=== PATIENT | male | born 1975 | race Caucasian/White ===

== ENCOUNTER 2018-01-05 12:59 | Emergency (ER) | payer MEDICAID, OTHER ==
[2018-01-05 13:11] VITALS: BP 126/88
--- NOTE | 2018-01-05 14:14 | EDM.PDOC ---
ED HPI GENERAL MEDICAL PROBLEM - General Chief Complaint: Respiratory Problem Stated Complaint: DIFFICULTY BREATHING Time Seen by Provider: 01/05/18 14:04 Source of Information: Reports: Patient History Limitations: Reports: No Limitations - History of Present Illness INITIAL COMMENTS - FREE TEXT/NARRATIVE: Patient is a 42-year-old male who presents ED with concerns of inappropriate evaluation at the [facility] yesterday. Patient states he was diagnosed with bronchitis and placed on Augmentin and prednisone. Patient's been having cold- like symptoms including: Runny nose, postnasal drip, sinus congestion, mild headache, sore throat, and mild cough with minimal productive sputum that has been improving. He states he did not have a chest x-ray obtained. States while driving to [facility] his chest tightness to the left aspect of his chest with coughing increased the pain. Pain resolved quickly over the next few seconds. He's had no symptoms as such since. He has no history of blood clots to his lungs or legs. He has no pain or swelling to his lower legs. He has no history of spontaneous pneumothorax. There's been no recent long travel or surgery. He's never received hospitalized nor does he have cancer. He does smoke one half pack per day. There's been no recent sick exposures. Patient has a past medical history of hypertension and is on lisinopril. Surgical history noncontributory. - Related Data Allergies Allergy/AdvReac Type Severity Reaction Status Date / Time No Known Allergies Allergy Verified 10/04/14 08:54 Home Meds: Home Meds Amoxicillin/Clavulanate K [Augmentin 875-125 MG] 1 tab PO BID 01/05/18 [History] Prednisone [IJD: predniSONE] 40 mg PO DAILY 01/05/18 [History] Past Medical History Cardiovascular History: Reports: Hypertension Respiratory History: Reports: Pneumonia, Recurrent - Past Surgical History GI Surgical History: Reports: Appendectomy Social & Family History - Tobacco Use Smoking Status *Q: Current Every Day Smoker Years of Tobacco use: 15 Packs/Tins Daily: 0.5 - Caffeine Use Caffeine Use: Reports: Coffee - Recreational Drug Use Recreational Drug Use: No ED ROS GENERAL - Review of Systems Review Of Systems: ROS reveals no pertinent complaints other than HPI. ED EXAM, GENERAL - Physical Exam Exam: See Below Exam Limited By: No Limitations General Appearance: Alert, WD/WN, No Apparent Distress Ears: Hearing Grossly Normal Nose: Normal Inspection Throat/Mouth: Normal Inspection, Normal Oropharynx, Normal Voice, No Airway Compromise Head: Atraumatic, Normocephalic Neck: Normal Inspection, Supple Respiratory/Chest: No Respiratory Distress, Lungs Clear, Normal Breath Sounds, No Accessory Muscle Use, Chest Non-Tender Cardiovascular: Normal Peripheral Pulses, Regular Rate, Rhythm, No Murmur Peripheral Pulses: 4+: Radial (L), Radial (R) GI/Abdominal: Normal Bowel Sounds, Soft, Non-Tender, No Organomegaly Extremities: Normal Inspection, Non-Tender, No Pedal Edema, Normal Capillary Refill Neurological: Alert, Oriented, CN II-XII Intact, Normal Cognition, No Motor/ Sensory Deficits Psychiatric: Normal Affect, Normal Mood Skin Exam: Warm, Dry, Intact, Normal Color, No Rash Course - Vital Signs Last Recorded V/S: Last Vital Signs Temp 98.8 F 01/05/18 13:08 Pulse 7 L 01/05/18 13:08 Resp 20 01/05/18 13:08 BP 126/88 01/05/18 13:08 Pulse Ox 96 01/05/18 13:08 - Re-Assessments/Exams Free Text/Narrative Re-Assessment/Exam: Patient has viral upper respiratory infection. Diagnosis of bronchitis is correct. He is on Augmentin and prednison. Again I think this is viral and would resolve on its own accord. With that said patient has already taken 3 doses of the Augmentin and will continue. He'll also continue with the prednisone. Follow-up with his PCP at conclusion of therapy to ensure symptoms have improved. He as instructed to return to the ED if he develops any new or worsening symptoms.. 0 Departure - Departure Time of Disposition: 14:12 Disposition: Home, Self-Care 01 Condition: Good Clinical Impression: Bronchitis - Discharge Information Instructions: Steps to Quit Smoking, [id number], Shortness of Breath, Adult, [id number], Acute Bronchitis, Adult, [id number], Upper Respiratory Infection , Adult, [id number] Referrals: PCP,Not In Area [Primary Care Provider] - Forms: ED Department Discharge Additional Instructions: Suspect cause of sinus congestion, postnasal drip, and cough is related to a viral infection called bronchitis. Due to smoking history you are at increased risk of developing bacterial infection. Continue taking the Augmentin and prednisone as prescribed. Her taking Mucinex 600 mg twice a day with copious amounts of water. Follow-up with PCP the conclusion of therapy to ensure resolution. Return to the ED if you develop any new or worsening symptoms.
== END 2018-01-05 14:42 | disposition home or self-care (01) ==
LOC: JD.ED 12:59 → SUPCPDRO 12:59 → JD.ED 14:42
DX: J40 Bronchitis, not specified as acute or chronic (principal); F17.210 Nicotine dependence, cigarettes, uncomplicated; Z79.899 Other long term (current) drug therapy
CPT/HCPCS: 99283; 99284

== ENCOUNTER 2024-11-12 16:09 | Emergency (ER) | payer BC, MEDICAID ==
[2024-11-12 18:27] LABS: BASOPHILS PERCENT AUTO 0.4 % (0.0-1.0); EOSINOPHILS PERCENT AUTO 0.1 % (0.0-6.0); HEMATOCRIT 47.2 % (42.0-52.0); HEMOGLOBIN 16.2 gm/dl (14.0-18.0); IMMATURE GRAN ABSOLUTE AUTO 0.02 K/mm3 (0.00-0.05); IMMATURE GRAN PERCENT AUTO 0.2 % (0.0-0.4); LYMPHOCYTES ABSOLUTE AUTO 1.3 K/mm3 (1.0-4.8); LYMPHOCYTES PERCENT AUTO 16.3 % (24.0-44.0); MEAN CORPUSCULAR HEMOGLOBIN 29.5 pg (28.0-32.0); MEAN CORPUSCULAR HGB CONC 34.3 g/dl (32.0-36.0); MEAN CORPUSCULAR VOLUME 85.8 fl (83.0-99.0); MEAN PLATELET VOLUME 9.3 fl (9.4-12.4); MONOCYTES ABSOLUTE AUTO 1.2 K/mm3 (0.0-0.8); MONOCYTES PERCENT AUTO 14.3 % (0.0-8.0); NEUTROPHILS ABSOLUTE AUTO 5.7 K/mm3 (1.8-7.7); NEUTROPHILS PERCENT AUTO 68.7 % (41.0-71.0); PLATELET COUNT,PLT 293 K/mm3 (150-400); WHITE BLOOD CELL COUNT,WBC 8.24 K/mm3 (3.9-11.3)
[2024-11-12 18:47] LABS: ALBUMIN 3.7 g/dl (3.4-5.0); ANION GAP 14.8 (5-15); BILIRUBIN TOTAL 0.3 mg/dL (0.2-1.0); CALCIUM 8.9 mg/dL (8.5-10.1); EST CRCL DRUG DOSING (CG) 103.2 mL/min; POTASSIUM,K 3.8 mEq/L (3.5-5.1); PROTEIN TOTAL,TP 7.6 g/dl (6.4-8.2)
[2024-11-12] MEDS: cefTRIAXone 2 GM in Sodium Chloride 0.9% 100 ML IV ONE (18:52)
[2024-11-12] MEDS: Sodium Chloride 0.9% 1,000 ML IV SCH (18:52)
[2024-11-12 20:25] VITALS: BP 157/85; PULSE 78
== END 2024-11-12 20:26 | disposition home or self-care (01) ==
LOC: JD.ED 16:09
DX: J10.1 Influenza due to other identified influenza virus with other respiratory manifestations (principal); I10 Essential (primary) hypertension; J01.90 Acute sinusitis, unspecified; Z87.891 Personal history of nicotine dependence
CPT/HCPCS: 36415; 71045; 80053; 85025; 87428; 93005; 96365; 99285; J0696; J7030; 93010; 99284